=== PATIENT | female | born 1970 | race African-American/Black ===

== ENCOUNTER 2017-03-09 15:28 | Emergency (ER) | payer MEDICAID ==
[~2017-03-09] VITALS: Ht 162.6 cm; Wt 75.0 kg
[~2017-03-09 15:28] MED LIST: IRON325T2 PO
[2017-03-09 15:29] VITALS: BP 142/95; PULSE 77; RESP 15; TEMP 98.6; O2SAT 98
[2017-03-09] MEDS ORDERED: IOHEXOL 350 MG/ML 10 ML VIAL (for RAD DIAG) IVCONTRAST ONE (15:29)
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
[2017-03-09] MEDS ORDERED: traMADol HCL 50 MG TAB PO ONE (17:30)
[2017-03-09] MEDS ORDERED: SODIUM CHLORIDE 0.9% FLUSH 10 ML FLUSH IVF PRN (17:30)
--- NOTE | 2017-03-09 17:59 | RADRPT ---
EXAM DATE/TIME: 03/09/2017 17:57 [facility] COMPARISON: CHEST SINGLE AP, November 09, 2015, 21:24. INDICATIONS : Left lower chest pain. MEDICAL HISTORY : None. SURGICAL HISTORY : None. ENCOUNTER: Initial ACUITY: 1 day PAIN SCORE: 7/10 LOCATION: Bilateral chest FINDINGS: A single view of the chest demonstrates the lungs to be symmetrically aerated without evidence of mas s, infiltrate or effusion. The cardiomediastinal contours are unremarkable. Osseous structures are intact. CONCLUSION: No acute disease. No significant change has occurred. Buster Bolaños MD on March 09, 2017 at 17:57 Board Certified Radiologist. This report was verified electronically.
[2017-03-09 18:03] LABS: AUTOMATED NEUTROPHIL # 4.3 TH/MM3 (1.8-7.7); BASOPHIL % 0.6 % (0.0-2.0); EOSINOPHIL # 0.2 TH/MM3 (0-0.4); EOSINOPHIL % 2.2 % (0.0-4.0); HEMATOCRIT 34.6 % (35.0-46.0); HEMO FLAGS DIFF FINAL; LYMPH % 34.6 % (9.0-44.0); LYMPHOCYTE # 2.6 TH/MM3 (1.0-4.8); MEAN CELL VOLUME 78.9 FL (80.0-100.0); MEAN CORPUSCULAR HEMOGLOBIN 26.2 PG (27.0-34.0); MEAN CORPUSCULAR HGB CONC 33.2 % (32.0-36.0); MONO % 5.6 % (0.0-8.0); PLATELET COUNT 241 TH/MM3 (150-450); RED BLOOD COUNT 4.39 MIL/MM3 (4.00-5.30); WHITE BLOOD COUNT 7.5 TH/MM3 (4.0-11.0)
[2017-03-09 18:18] LABS: APTT (PATIENT) 25.4 SEC (24.3-30.1); INTERNATIONAL NORMALIZED RATIO 0.9 RATIO; PROTHROMBIN TIME - PATIENT 10.4 SEC (9.8-11.6)
[2017-03-09 19:01] LABS: ANION GAP 6 MEQ/L (5-15); BICARBONATE 27.9 MEQ/L (21.0-32.0); BLOOD UREA NITROGEN 8 MG/DL (7-18); CHLORIDE 103 MEQ/L (98-107); CREATINE KINASE 140 U/L (26-192); GLOMERULAR FILTRATION RATE 77 ML/MIN (>89); POTASSIUM 4.3 MEQ/L (3.5-5.1); SODIUM (NA) 137 MEQ/L (136-145)
[2017-03-09 19:14] LABS: CKMB 0.7 NG/ML (0.5-3.6)
--- NOTE | 2017-03-09 20:02 | RADRPT ---
EXAM DATE/TIME: 03/09/2017 19:27 [facility] COMPARISON: CHEST SINGLE AP, March 09, 2017, 17:57. INDICATIONS : Short of breath. IV CONTRAST: 75 cc Omnipaque 350 (iohexol) IV RADIATION DOSE: 12.50 CTDIvol (mGy) MEDICAL HISTORY : Cardiovascular disease. Sickel cell, SURGICAL HISTORY : Hysterectomy. Left ovary removed ENCOUNTER: Initial ACUITY: 1 month PAIN SCALE: 4/10 LOCATION: Left lower chest TECHNIQUE: Volumetric scanning of the chest was performed using a pulmonary embolism protocol MIP images were re constructed. Using automated exposure control and adjustment of the mA and/or kV according to patien t size, radiation dose was kept as low as reasonably achievable to obtain optimal diagnostic quality images. DICOM format image data is available electronically for review and comparison. Follow-up recommendations for detected pulmonary nodules are based at a minimum on nodule size and pa tient risk factors according to Fleischner Society Guidelines. FINDINGS: PULMONARY ARTERIES: No filling defects are seen in the pulmonary arteries through the segmental level. LUNGS: There is no consolidation or pneumothorax . No concerning pulmonary nodule is visualized. PLEURAE: There is no pleural thickening or pleural effusion. MEDIASTINUM: There is good visualization of the great vessels of the middle mediastinum. No evidence of mediastin al or hilar adenopathy/mass. MUSCULOSKELETAL: Within normal limits for patient age. MISCELLANEOUS: The visualized upper abdominal organs demonstrate no acute abnormality. CONCLUSION: Normal examination. No evidence of. No acute cardiopulmonary process. Lex Madsen MD on March 09, 2017 at 19:58 Board Certified Radiologist. This report was verified electronically.
[2017-03-09] MEDS ORDERED: TRAM50TA PO (20:17)
--- NOTE | 2017-03-10 17:23 | EKG ---
Date Performed: 03/09/2017 Time Performed: 17:24:16 PTAGE: 47 years EKG: SINUS BRADYCARDIA WITH FIRST DEGREE AV BLOCK ABNORMAL ECG PREVIOUS TRACING : 11/09/2015 21.00 DOCTOR: Betina Thompson Interpretating Date/Time 03/10/2017 17:20:57
== END 2017-03-09 21:25 | disposition home or self-care (01) ==
LOC: NEPD 15:28
DX: R07.89 Other chest pain (principal); I44.0 Atrioventricular block, first degree; F17.210 Nicotine dependence, cigarettes, uncomplicated
CPT/HCPCS: 71010; 71275; 80048; 82550; 82552; 84484; 85025; 85379; 85610; 85730; 93005; 99285; Q9967